=== PATIENT | female | born 1970 | race Caucasian/White ===

== ENCOUNTER → 2017-07-07 | Outpatient (CLI) | payer BC ==
--- NOTE | 2017-07-08 09:38 | MM ---
Reason for exam: screening (asymptomatic). Last mammogram was performed 1 year and 2 months ago. History: Patient had first child at age 34. Family history of breast cancer in paternal aunt. Took hormonal contraceptives beginning at age 44. Taking progesterone for 1 month beginning at age 42. Taking tamoxifen for 1 month. Physical Findings: Nurse did not find any significant physical abnormalities on exam. MG 3D Screening Mammo W/Cad Bilateral CC and MLO view(s) were taken. Prior study comparison: April 22, 2016, bilateral MG 3d diag mammo w/cad PAULINE. March 27, 2015, bilateral MG diagnostic mammo w CAD PAULINE. The breast tissue is heterogeneously dense. This may lower the sensitivity of mammography. Finding: There is a 22 mm circumscribed oval mass in the lower inner quadrant, middle position of the right breast. 41mm circumscribed mass in the left breast upper outer quadrant. New finding and increase in size since April 22, 2016. ASSESSMENT: Incomplete: need additional imaging evaluation, BI-RAD 0 RECOMMENDATION: Ultrasound of both breasts. [facility] will attempt to contact patient to return for ultrasound.
== END | disposition home or self-care (01) ==
LOC: RADMAMWWP 11:20
PROVIDERS: ATTEND Nurse Practitioner
DX: Z12.31 Encounter for screening mammogram for malignant neoplasm of breast (principal)
CPT/HCPCS: 77063; G0202

== ENCOUNTER → 2017-07-25 | Outpatient (CLI) | payer BC ==
--- NOTE | 2017-07-30 07:54 | USB ---
Reason for exam: follow-up at short interval from prior study. History: Patient had first child at age 34. Family history of breast cancer in paternal aunt. Took hormonal contraceptives beginning at age 44. Taking progesterone for 1 month beginning at age 42. Taking tamoxifen for 1 month. Physical Findings: Nurse did not find any significant physical abnormalities on exam. US Breast Workup Limited PAULINE Technologist: Loyda Mata Right breast ultrasound demonstrates a 25 x 1.0 x 2.3cm oval, cystic cluster at 3 o'clock, and a 0.7 x 0.4 x 0.7cm oval, cystic lesion at 6 o'clock. Left breast ultrasound demonstrates a 1.2 x 0.7 x 0.8cm oval, cystic lesion at 12 o'clock, a 4.0 x 2.0 x 3.0cm oval, cystic cluster at 2 o'clock, a 0.8 x 0.4 x 0.5cm oval, mixed lesion at 2 o'clock, a 1.0 x 0.8 x 0.9cm oval, mixed lesion at 3 o'clock for which a cyst aspiration is recommended. These results were verbally communicated with the patient and result sheet given to the patient on 07/25/17. ASSESSMENT: Suspicious, BI-RAD 4 RECOMMENDATION: Aspiration of the left breast. Called Anne Rendon NP with mammographic findings and has scheduled an appointment for the patient for08/12/17 at 10:[address] [place]. PRELIMINARY REPORT CALLED AND FAXED TO DR. [place] ON 07/25/17.
== END | disposition home or self-care (01) ==
LOC: RADUSWWP 16:01
PROVIDERS: ATTEND Obstetrics & Gynecology
DX: R92.8 Other abnormal and inconclusive findings on diagnostic imaging of breast (principal)

== ENCOUNTER → 2017-08-06 | Day surgery (SDC) | payer BC ==
[2017-08-06 13:29] VITALS: RESP 16; TEMP 97.9; BMI 25.0
--- NOTE | 2017-08-06 15:19 | USB ---
EXAMINATION TYPE: US breast aspiration single LT DATE OF EXAM: 08/06/2017 COMPARISON: NONE CLINICAL HISTORY: R92.8 Prev Abnormal, Left Breast. TECHNIQUE: Informed consent was obtained. A preprocedural timeout was performed. Maximal barrier technique was utilized. The skin overlying a suitable path to the patient's mass was localized with ultrasound and the overlying skin prepped and draped. Ultrasound was utilized with sterile technique. 8 cc of lidocaine was used for local anesthesia at the skin and leading up to the complicated cyst at the 3:00 position measuring approximately 0.9 x 0.8 x 0.9 cm. An 18-gauge needle was advanced under direct ultrasound guidance and aspiration was performed of approximately 1 cc of brownish thick gelatinous fluid. Specimen submitted in formalin to Pathology. Following the procedure, hemostasis achieved and the patient is discharged in stable condition without complication. IMPRESSION: STATUS POST ULTRASOUND GUIDED CYST ASPIRATION OF A COMPLICATED LEFT BREAST CYST AT THE 3:00 POSITION, PATHOLOGY IS PENDING. Pathology Results: Benign BREAST, LEFT, CYST ASPIRATE: BLOOD, MACROPHAGES AND APOCRINE CELLS CONSISTENT WITH APOCRINE CYST. Recommendation Follow up ultrasound of the left breast in 6 months. AMY
[2017-08-06 15:20] VITALS: BP 117/79; PULSE 76
== END ==
LOC: RADUSWWP 12:58
PROVIDERS: ATTEND Surgery
DX: N60.02 Solitary cyst of left breast (principal)
CPT/HCPCS: 88108; 88305; 76942; 19000; J2001

== ENCOUNTER → 2018-03-03 | Outpatient (CLI) | payer BC ==
--- NOTE | 2018-03-03 09:56 | USB ---
Reason for exam: follow-up at short interval from prior study. History: Patient had first child at age 34. Family history of breast cancer in paternal aunt. Benign US breast aspiration single LT of the left breast, August 06, 2017. Took hormonal contraceptives beginning at age 44. Taking progesterone for 1 month beginning at age 42. Taking tamoxifen for 1 month. Physical Findings: Nurse Summary: Patient complains of bilateral breast pain x 5 days, 1cm palpable left breast 3-4 o'clock (nurse lorraine). US Breast LT Technologist: Lian Aden RT (R)(M) Left complete breast ultrasound includes all four quadrants, the retroareolar region and axilla. Finding demonstrates a 14mm oval, cystic lesion at 12 o'clock, a 42mm oval, septated cyst at 3 o'clock, a 10 mm oval, cystic lesion at 3 o'clock, a 11 mm oval, cystic lesion at 5 o'clock, a 8 x 5 x 7mm oval, cystic lesion with debris at 7 o'clock and a 11 mm oval, cystic lesion at 9 o'clock. Multicystic breast. Overall fibrocystic change. These results were verbally communicated with the patient and result sheet given to the patient on 03/03/18. ASSESSMENT: Probably benign, BI-RAD 3 RECOMMENDATION: Follow-up diagnostic mammogram of both breasts in 5 months.
== END | disposition home or self-care (01) ==
LOC: RADUSWWP 09:05
PROVIDERS: ATTEND Family Medicine
DX: R92.8 Other abnormal and inconclusive findings on diagnostic imaging of breast (principal)

== ENCOUNTER → 2018-08-14 | Outpatient (CLI) | payer BC ==
[2018-08-14 09:46] VITALS: BP 108/72; PULSE 79; RESP 18; TEMP 98.7; BMI 25.0
--- NOTE | 2018-08-14 10:31 | P.GSHP ---
History of Present Illness H&P Date: 08/14/18 Chief Complaint: abnormal radiographs of hte breast The patient is a 48-year-old white female who in June 2017 had a bilateral screening mammogram performed, this was felt to be incomplete and bilateral breast ultrasounds are recommended. Bilateral breast ultrasounds were done and it was recommended to the cystic lesion in the left breast be aspirated. This was the lesion at 3:00. Pathology revealed findings consistent with apocrine cyst and repeat ultrasound of the left breast was done in February 2018. This was felt to be probably benign and the patient is now due for bilateral breast mammograms. The patient states she has dense breast, but has not felt any thing new in her breast. The patient has no nipple discharge or skin changes. The patient has not been at this time which is specifically concerned about in her breasts. Family History: 1. father: prostate and skin cancer 2. great aunts paternal: breast cancer Multiple history Menarche: 16 Pregnancies: 2, 2 children first at 34, breast fed: yes menopause: hysterectomy at 45, for adenomyosis and fibroids, no cancer, left both ovaries BCP: 10 years hormones: used estrogen about 1 year, and progesterone ( 2-3 years) have been off for about 8 months Past surgical history 1. myosure for fibroids 2. cervical freezing 3. hysterectomy Past Medical History: 1. placental abruption 2. anxiety social History: smoke: none alcohol: none drugs: none caffiene: coffee 2 cups in the am - Constitutional Comment: hot flashes Constitutional: Reports sweats - EENT Comment: migraine headaches Eyes: denies blurred vision, denies pain Ears: bilateral: tinnitus, deny: decreased hearing Ears, nose, mouth and throat: Reports headache, Denies sore throat - Breasts Breasts: bilateral: as per HPI - Cardiovascular Cardiovascular: Denies chest pain, Denies shortness of breath - Respiratory Respiratory: Denies cough, Denies 7 - Gastrointestinal Comment: ? IBS Gastrointestinal: Denies abdominal pain, Denies diarrhea, Denies nausea, Denies vomiting - Genitourinary (Female) Genitourinary: Denies dysuria, Denies hematuria - Musculoskeletal Musculoskeletal: Denies myalgias - Integumentary Integumentary: Denies pruritus, Denies rash - Neurological Neurological: Denies numbness, Denies weakness - Psychiatric Psychiatric: Reports anxiety - Endocrine Endocrine: Denies fatigue, Denies weight change - Hematologic/Lymphatic Comment: fish oil - Allergic/Immunologic Comment: possiible IGG deficiency Allergic/Immunologic: Reports seasonal allergies Past Medical History Past Medical History: No Reported History Additional Past Medical History / Comment(s): Adenomyosis History of Any Multi-Drug Resistant Organisms: None Reported Past Surgical History: Ablation, Hysterectomy Additional Past Surgical History / Comment(s): d & c with polyp removal 2014., u /s guided cyst aspiration Past Anesthesia/Blood Transfusion Reactions: No Reported Reaction Past Psychological History: Anxiety Smoking Status: Never smoker Past Drug Use History: None Reported Medications and Allergies Home Medications Medication Instructions Recorded Confirmed Type Ascorbic Acid [Vitamin C] 1,000 mg PO QAM 08/14/18 08/14/18 History Biotin 5 mg PO QAM 08/14/18 08/14/18 History Calcium Carbonate [Calcium] 600 mg PO QAM 08/14/18 08/14/18 History Cholecalciferol [Vitamin D3] 1,000 unit PO QAM 08/14/18 08/14/18 History Escitalopram [Lexapro] 10 mg PO HS 08/14/18 08/14/18 History Glucosam/Brown-Msm1/C/Rolf/Bosw 1 each PO QAM 08/14/18 08/14/18 History [Glucosamine-Chondroitin Tablet] Magnesium 200 mg PO QAM 08/14/18 08/14/18 History Multivitamins, Thera [Multivitamin 1 tab PO QAM 08/14/18 08/14/18 History (formulary)] [place]-3 Fatty Acids/Fish Oil [Fish 1 each PO QAM 08/14/18 08/14/18 History Oil 1,000 mg Softgel] Allergies Allergy/AdvReac Type Severity Reaction Status Date / Time No Known Allergies Allergy Verified 08/06/17 13:18 Surgical - Exam Vital Signs Temp Pulse Resp BP Pulse Ox 98.7 F 79 18 108/72 97 08/14/18 09:41 08/14/18 09:41 08/14/18 09:41 08/14/18 09:41 08/14/18 09:41 BMI 25.1 - General well developed, well nourished, no distress - Eyes normal ocular movement, no icteric - ENT no hearing loss, no congestion - Neck no masses, trachea midline - Respiratory normal respiratory effort, clear to auscultation - Cardiovascular Rhythm: regular Heart Sounds: normal: S1, S2 - Abdomen Abdomen: soft, non tender, no guarding, no rigid, no rebound - Integumentary normal turger - Neurologic no disoriented, no combative - Musculoskeletal normal gait, normal posture - Psychiatric oriented to time, oriented to person, oriented to place, speech is normal, memory intact Breast examination: Right breast: Very dense breast on multiple positional exam no dominant masses or nodules of concern Right axilla: No adenopathy of concern Left breast: Very dense breast and multi positional exam no dominant masses or nodules of concern bilateral fibrocystic changes Left axilla: No adenopathy of concern Results Mammogram and ultrasound reports review of Assessment and Plan Assessment: Impression: 1. Bilateral fibrocystic dense breast 2. Status post left breast cyst aspiration which was benign approximately 6 months ago 3. Patient due for bilateral mammogram today possible ultrasounds based on mammograms Plan: 1. Bilateral mammogram further recommendation to follow these 2. Patient to do monthly self breast exams 3. Close surveillance 4. The denseness of the breast may decrease if she is able to decrease her caffeine intake discussed with the patient The patient drinks at least 2 cups of coffee per day. She does not smoke and is not exposed to secondhand smoke. She does not eat much chocolate. She does not drink much pop. She understands that decreasing the caffeine intake may decrease the density of the breasts. CC: Moni Luis
== END ==
LOC: WWCWWP 09:11
PROVIDERS: ATTEND Surgery
DX: Z53.9 Procedure and treatment not carried out, unspecified reason (principal)

== ENCOUNTER → 2018-08-14 | Outpatient (CLI) | payer BC ==
--- NOTE | 2018-08-14 11:54 | MM ---
Reason for exam: additional evaluation requested from prior study. Last mammogram was performed 1 year and 1 month ago. History: Patient had first child at age 34. Family history of breast cancer in paternal aunt. Benign US breast aspiration single LT of the left breast, August 06, 2017. Took hormonal contraceptives beginning at age 44. Taking progesterone for 1 month beginning at age 42. Taking tamoxifen for 1 month. Physical Findings: Breast exam performed by Dr. Da Silva. MG 3D Diag Mammo W/Cad PAULINE Bilateral CC, MLO, and XCCL view(s) were taken. Prior study comparison: July 07, 2017, bilateral MG 3d screening mammo w/cad. April 22, 2016, bilateral MG 3d diag mammo w/cad PAULINE. The breast tissue is heterogeneously dense. This may lower the sensitivity of mammography. No suspicious calcifications are seen. Waxing and waning cysts bilaterally. No significant new findings when compared with previous films. These results were verbally communicated with the patient and result sheet given to the patient on 08/14/18. ASSESSMENT: Benign, BI-RAD 2 RECOMMENDATION: Routine screening mammogram of both breasts in 1 year. Manage patient on a clinical basis.
== END | disposition home or self-care (01) ==
LOC: RADMAMWWP 09:14
PROVIDERS: ATTEND Surgery
DX: N60.01 Solitary cyst of right breast (principal); N60.02 Solitary cyst of left breast; R92.8 Other abnormal and inconclusive findings on diagnostic imaging of breast
CPT/HCPCS: 77062; 77066

== ENCOUNTER → 2019-02-18 | Outpatient (CLI) | payer BC ==
[2019-02-18 15:56] VITALS: BP 120/77; PULSE 99; RESP 18; TEMP 98.3; BMI 25.0
--- NOTE | 2019-02-18 16:10 | P.PN ---
Subjective Progress Note Date: 02/18/19 Principal diagnosis: lump in her right breast Ilene is a 48-year-old white female with a history of fibrocystic breast changes. In July 2018 she underwent a bilateral mammogram which was felt to be benign BIRADS 2. She has had ultrasound-guided aspiration of cysts in the breast in the past. The patient states most recently approximately 2 weeks ago she noted in the area of increased nodularity in her right breast at the 12 o'clock position. This was painful for her and she states that the area has persisted and is uncomfortable. The patient has had a hysterectomy and has no idea where she would be in relationship to her menstrual periods. They did not remove her ovaries. The lesion seems to be smaller as per the patient. The patient used to take hormone replacement therapy but she does not at this time. The patient still drinks approximately 2 large cups of coffee in the morning. She does not drink other caffeinated beverages. She does not smoke, she is not exposed to secondhand smoke. She states chocolate occasionally. Family history: 1. Father: Prostate and skin cancer 2. Gradients paternal: Breast cancer Hormonal history Menarche: 16 , first child at 34, breast-fed: Yes Menopause: Hysterectomy of 45 for adenomyosis and fibroids, no cancer, ovaries were not removed Patient control pills: 10 years Hormones: Use estrogen about 1 year and progesterone 2-3 years has been off it now for approximately 8 months Past surgical history: 1. Mild assure for fibroids 2. Cervical freezing 3. Hysterectomy Past medical history: 1. Placental abruption 2. Anxiety 3. Fibrocystic breast changes Social history: Smoke: Negative Alcohol: Negative Drugs: Negative Caffeine: Coffee 2 cups in the morning Review of systems: HEENT: Tinnitus Lungs: Negative Heart: Negative GI: Negative : Status post hysterectomy Musculoskeletal: Negative Skin: Negative Psychiatric: anxiety Objective - Vital Signs Vital signs: Vital Signs Temp 98.3 F 02/18/19 15:52 Pulse 99 02/18/19 15:52 Resp 18 02/18/19 15:52 BP 120/77 02/18/19 15:52 Pulse Ox 99 02/18/19 15:52 - Constitutional General appearance: Present: average body habitus - EENT Eyes: Present: EOMI ENT: Present: hearing grossly normal - Neck Neck: Present: normal ROM - Respiratory Respiratory: bilateral: CTA - Cardiovascular Rhythm: regular Heart sounds: normal: S1, S2 - Gastrointestinal General gastrointestinal: Present: soft - Integumentary Integumentary: Present: normal turgor - Musculoskeletal Musculoskeletal: Present: gait normal - Psychiatric Psychiatric: Present: A&O x's 3, appropriate affect, intact judgment & insight - Additional findings Additional findings: Breast exam: right breast: fibrocystic breast changes, multiple positional exam increased density in the upper outer quadrant area especially at the 10 o'clock position, some increased nodularity at the 12 o'clock position suspect this may represent cyst and dense breast tissue Right axilla: No adenopathy of concern Left breast: Fibrocystic breast changes Left axilla: No adenopathy of concern Bra 36B Assessment and Plan Assessment: Impression: 1. Breast pain 2. Fibrocystic breast changes 2. Nodularity greatest right breast 4. Family history of cancer in Plan: 1. Right breast ultrasound with possible aspiration of breast cysts 2. We discussed causes of breast pain and fibrocystic disease 3. Follow-up after breast ultrasound CC: Dr. Moni Luis
== END ==
LOC: WWCWWP 15:45
PROVIDERS: ATTEND Surgery
DX: Z53.9 Procedure and treatment not carried out, unspecified reason (principal)

== ENCOUNTER → 2019-10-22 | Outpatient (CLI) | payer OTHER ==
--- NOTE | 2019-10-22 15:36 | MM ---
Reason for exam: additional evaluation requested from prior study. Last mammogram was performed 1 year and 2 months ago. History: Patient had first child at age 34. Family history of breast cancer in paternal aunt. Benign US breast aspiration single LT of the left breast, August 06, 2017. Took hormonal contraceptives beginning at age 44. Taking estrogen beginning at age 42. Taking progesterone beginning at age 42. Physical Findings: Nurse Summary: 1.5cm nodule in the left breast at 3 o'clock (nurse ruslan). MG 3D Diag Mammo W/Cad PAULINE Bilateral CC and MLO view(s) were taken. Prior study comparison: August 14, 2018, bilateral MG 3d diag mammo w/cad PAULINE. July 07, 2017, bilateral MG 3d screening mammo w/cad. The breast tissue is extremely dense which could obscure a lesion on mammography. Finding: There is a 45 mm high density, obscured round mass in the left breast. New finding since August 14, 2018 and July 07, 2017. These results were verbally communicated with the patient and result sheet given to the patient on 10/22/19. ASSESSMENT: Incomplete: need additional imaging evaluation, BI-RAD 0 RECOMMENDATION: Ultrasound of both breasts.
--- NOTE | 2019-10-22 15:39 | USB ---
Reason for exam: additional evaluation requested from abnormal screening. History: Patient had first child at age 34. Family history of breast cancer in paternal aunt. Benign US breast aspiration single LT of the left breast, August 06, 2017. Took hormonal contraceptives beginning at age 44. Taking estrogen beginning at age 42. Taking progesterone beginning at age 42. US Breast Limited BILAT Right limited breast ultrasound including focal area of concern, retroareolar and axilla demonstrates a 1.1 x 0.6 x 0.4cm cystic lesion at 7 o'clock, a 0.6 x 0.6 x 0.4cm mixed lesion at 8 o'clock and a 0.2 x 0.2 x 0.2cm cystic lesion at 8 o'clock. Left limited breast ultrasound including focal area of concern, retroareolar and axilla demonstrates a 5.1 x 4.7 x 2.4cm cystic lesion at 1 o'clock and multiple cysts at 1 o'clock. These results were verbally communicated with the patient and result sheet given to the patient on 10/22/19. ASSESSMENT: Probably benign, BI-RAD 3 RECOMMENDATION: Ultrasound of the right breast in 6 months. (8 o'clock) Manage on a clinical basis with regard to left breast cyst.
== END | disposition home or self-care (01) ==
LOC: RADMAMWWP 13:37
PROVIDERS: ATTEND Family Medicine
DX: Z09 Encounter for follow-up examination after completed treatment for conditions other than malignant neoplasm (principal); Z86.000 Personal history of in-situ neoplasm of breast
CPT/HCPCS: 77062; 77066

== ENCOUNTER → 2020-05-02 | Outpatient (CLI) | payer OTHER ==
--- NOTE | 2020-05-02 12:08 | USB ---
Reason for exam: follow-up at short interval from prior study. History: Patient had first child at age 34. Family history of breast cancer in 2 paternal aunts. Benign US breast aspiration single LT of the left breast, August 06, 2017. Took hormonal contraceptives beginning at age 44. Took estrogen for 2 years beginning at age 42. Took progesterone for 2 years beginning at age 42. Physical Findings: Nurse Summary: 2cm movable cystic lumps right breast 12 o'clock, left breast 3 o'clock, 3cm lump left breast 1-2 o'clock, bilateral fibrocystic lumps (nurse mj). US Breast Limited BILAT Technologist: Amanda Chun Right limited breast ultrasound including focal area of concern, retroareolar and axilla demonstrates a 1.1 x 0.9 x 0.5cm cystic lesion at 8 o'clock, a 0.6 x 0.6 x 0.5cm round, lobular, cystic lesion at 8 o'clock with internal echoes, suspect debris filled cyst not clearly seen prior, a 1.3 x 1.2 x 0.3cm oval, cystic lesion at 10 o'clock, a 0.5 x 1.0 x 0.4cm cystic lesion at 10 o'clock and a 1.9 x 1.2 x 0.5cm cystic cluster at 12 o'clock. Left limited breast ultrasound including focal area of concern, retroareolar and axilla demonstrates a 5.2 x 4.6 x 2.6cm oval, cystic lesion at 1 o'clock, a 3.4 x 3.0 x 1.2cm oval, cystic lesion at 2 o'clock, a 4.4 x 2.5 x 1.6cm oval, cystic lesion at 3 o'clock, elongated cyst and a 1.0 x 1.2 x 1.0cm cystic cluster of adjacent cysts or cystic septation at the nipple. These results were verbally communicated with the patient and result sheet given to the patient on 05/02/20. ASSESSMENT: Probably benign, BI-RAD 3 RECOMMENDATION: Follow-up diagnostic mammogram and ultrasound of both breasts in 6 months.
== END | disposition home or self-care (01) ==
LOC: RADUSWWP 10:15
PROVIDERS: ATTEND Family Medicine
DX: R92.8 Other abnormal and inconclusive findings on diagnostic imaging of breast (principal)

== ENCOUNTER → 2020-07-20 | Outpatient (CLI) | payer OTHER ==
--- NOTE | 2020-07-20 09:45 | P.PN ---
Subjective Progress Note Date: 07/20/20 Principal diagnosis: breast lumps, greatest in the left breast Ilene is a 50-year-old white female with a history of fibrocystic breast changes. In July 2018 she underwent a bilateral mammogram which was felt to be benign BIRADS 2. She has had ultrasound-guided aspiration of cysts in the breast in the past. Her bilateral mammogram performed in October 2019 after which ultrasound of both breasts were recommended. The ultrasound was performed in April 2020. The ultrasound revealed multiple cystic lesions bilaterally. The largest of the right breast was 0.3 x 1.2 cm at 10:00. In the left breast a 5.2 x 2.6 cm oval cystic lesion was noted at 1:00. These were all felt to be benign BIRADS 3 and follow-up by diagnostic mammogram and ultrasound in 6 months of the breast was recommended. Patient states that she does feel system both breast. The left breast upper outer quadrant area is the one that is tender and she is most concerned about. She is not complaining of any other lumps masses or nodules in her breast. She had hormone testing done and was told that her estrogen levels were very low. She has recently started hormone replacement therapy changes using estrogen cream which is topical , states that her breasts are less teder after she is t aking the cream. She has never had any surgery on her breast. She had a hysterectomy approximately 5 years ago for adenomyosis, they did not take her ovaries. Caffeine: 3-4 cups/day Imaging: Negative Theophylline: Occasional Hormones: As noted above Family history: 1. Father: Prostate and skin cancer 2. Great aunt paternal: Breast cancer 3. paternal aunt: breast cancer Hormonal history Menarche: 16 , first child at 34, breast-fed: Yes Menopause: Hysterectomy of 45 for adenomyosis and fibroids, no cancer, ovaries were not removed Patient control pills: 10 years Hormones: Use estrogen about 1 year and progesterone 2-3 years has been off it now for approximately 8 months Past surgical history: 1. myometrial excision fibroids 2. Cervical freezing 3. Hysterectomy Past medical history: 1. Placental abruption 2. Anxiety 3. Fibrocystic breast changes 4. hot flashes Social history: Smoke: Negative Alcohol: Negative Drugs: Negative Caffeine: Coffee 2 cups in the morning Review of systems: HEENT: Tinnitus Lungs: Negative Heart: Negative GI: Negative : Status post hysterectomy/ perimenopausal at this time recently started on estrogen Musculoskeletal: Negative, planter fasciitis Skin: Negative Psychiatric: anxiety Objective - Vital Signs Vital signs: Vital Signs Temp 98.3 F 07/20/20 09:15 Pulse 71 07/20/20 09:15 Resp 18 07/20/20 09:15 BP 120/69 07/20/20 09:15 Pulse Ox 99 07/20/20 09:15 Intake & Output 07/19/20 07/20/20 07/20/20 18:59 06:59 18:59 Weight 81.193 kg - Exam BMI 26.8 - Constitutional General appearance: Present: average body habitus - EENT Eyes: Present: EOMI ENT: Present: hearing grossly normal - Neck Neck: Present: normal ROM - Respiratory Respiratory: bilateral: CTA - Cardiovascular Rhythm: regular Heart sounds: normal: S1, S2 - Gastrointestinal General gastrointestinal: Present: normal bowel sounds, soft - Integumentary Integumentary: Present: normal turgor - Musculoskeletal Musculoskeletal: Present: gait normal - Psychiatric Psychiatric: Present: A&O x's 3, appropriate affect - Additional findings Additional findings: breast exam: BRA 36B inspection: ptosis grade 2 bilateral Palpation: right breasts: Fibroglandular tissue, no dominant discrete masses Axilla: No adenopathy of concern Left breast: Fibroglandular tissue, two discrete masses at 12:00 and at 1:00 Left axilla: No adenopathy of concern Assessment and Plan Assessment: Impression: 1. Fibrocystic breast changes 2. Patient recently started on hormone replacement therapy 3. Palpable lumps in the left breast 2 Plan: 1. Aspiration cystic lesion left breast 2 2. We have discussed decreasing caffeine intake secondary to its association with fibrocystic breast changes 3. Patient hormone replacement therapy may be affecting for breast pain/cyst 4. Patient will follow up in 3 weeks after aspiration of breast cysts left breast CC: DR. Moni Luis encounter 15 minutes, > 50% of time in planning and counselling
--- NOTE | 2020-07-20 09:48 | P.PCN ---
Date of Procedure: 07/20/20 Preoperative Diagnosis: Cystic lesions left breast 1:00 and 12:00 Postoperative Diagnosis: same Surgeon: Margaret Da Silva Pathology: other Disposition: same day Indications for Procedure: Symptomatic cystic changes left breast Operative Findings: Lesion 12:00 16 mL of fluid slightly yellow turbid in nature. Lesion 1:00 5 mL of fluid green in nature Description of Procedure: The patient underwent breast examination. 2 lesions were noted in the left breast for aspiration. The first was at 12:00 the breast was prepped using alcohol a 12 mL syringe with a 22-gauge needle was inserted into the lesion and 12 mL of fluid was removed. The syringe was replaced and an additional 4 mL of fluid was removed with replacement of the syringe. The second lesion at 1:00 was prepped using alcohol 22-gauge needle on a 10 mL syringe was inserted and 5 mL of fluid Complete resolution of both lesions occurred. The specimens were sent to pathology and the patient will follow-up in one in 3 weeks.
[2020-07-20 10:05] VITALS: BP 120/69; PULSE 71; RESP 18; TEMP 98.3
== END | disposition home or self-care (01) ==
LOC: WWCWWP 09:05
PROVIDERS: ATTEND Surgery
DX: N60.02 Solitary cyst of left breast (principal)
CPT/HCPCS: 88108; 88305

== ENCOUNTER → 2020-08-18 | Outpatient (CLI) | payer OTHER ==
[2020-08-18 12:58] VITALS: BP 115/78; PULSE 61; RESP 16; TEMP 98.1
--- NOTE | 2020-08-18 13:26 | P.PN ---
Subjective Progress Note Date: 08/18/20 Principal diagnosis: left breast cyst Ilene is a 50[place] [id number] [place] aspirated in her left breast. She reports today to determine if the cysts have recurred. The patient underwent breast examination. 2 lesions were noted in the left breast for aspiration. The first was at 12:00 the breast was prepped using alcohol a 12 mL syringe with a 22-gauge needle was inserted into the lesion and 12 mL of fluid was removed. The syringe was replaced and an additional 4 mL of fluid was removed with replacement of the syringe. The second lesion at 1:00 was prepped using alcohol 22-gauge needle on a 10 mL syringe was inserted and 5 mL of fluid She does not believe that this cyst have recurred. She is here for evaluation with respect to this. Caffeine: 3-4 cups of coffee per day Nicotine: Negative Theophylline: Occasional Hormones: Recently started hormone replacement therapy using estrogen cream which is topical Family history: Father: Prostate skin cancer Grade paternal aunt: Breast cancer Paternal aunt: Breast cancer Surgical history: Myometrial excision of fibroids Cervical freezing Hysterectomy Medical history: Anxiety Fibrocystic breast changes Hot flashes Social history: Smoke: Negative Alcohol: Negative Drugs: Negative Review of systems: HEENT: Tinnitus Lungs: Negative Heart: Negative GI: Negative : Status post hysterectomy. Menopausal on estrogen Musculoskeletal: Plantar fasciitis Skin: Negative Psychiatric: Negative Objective - Vital Signs Vital signs: Vital Signs Temp 98.1 F 08/18/20 12:55 Pulse 61 08/18/20 12:55 Resp 16 08/18/20 12:55 BP 115/78 08/18/20 12:55 Pulse Ox 99 08/18/20 12:55 Intake & Output 08/17/20 08/18/20 08/18/20 18:59 06:59 18:59 Weight 79.379 kg - Exam BMI 27.4 - Constitutional General appearance: Present: average body habitus - EENT Eyes: Present: EOMI ENT: Present: hearing grossly normal - Neck Neck: Present: normal ROM - Respiratory Respiratory: bilateral: CTA - Cardiovascular Rhythm: regular Heart sounds: normal: S1, S2 - Gastrointestinal General gastrointestinal: Present: soft - Integumentary Integumentary: Present: normal turgor - Musculoskeletal Musculoskeletal: Present: gait normal - Psychiatric Psychiatric: Present: A&O x's 3, appropriate affect - Additional findings Additional findings: breast exam: left breast: nodularity lefteral aspect of left breast at 3 o clock, 1 cm in size no specific evidence of recurrence of the cyst which was aspirated in the past at 12:00 and at 1:00 No axillary adenopathy of concern Right breast: No specific masses or nodules of concern Right axilla: No adenopathy of concern Assessment and Plan Assessment: Impression: 1. Perimenopausal 2. Fibrocystic breast changes 3. Palpable nodule left breast at 3:00 most likely cystic in nature Plan: 1. Close surveillance of breast 2. Aspiration of 3:00 lesion left breast 4. If this is negative for cystoscopy consider repeating an ultrasound CC: Dr. Luis encounter 15 minutes, > 50% of time in planning and counselling
--- NOTE | 2020-08-18 13:30 | P.PCN ---
Date of Procedure: 08/18/20 Preoperative Diagnosis: Mass left breast at 3:00 Postoperative Diagnosis: Same Procedure(s) Performed: Aspiration mass left breast rule out cyst Surgeon: Margaret Da Silva Pathology: none sent Condition: stable Disposition: same day Indications for Procedure: Palpable mass left breast at 3:00 approximately 1 cm in size Operative Findings: dark Brown fluid Description of Procedure: The area of the left breast was prepped using alcohol. A 22-gauge needle on a 10 mL syringe was inserted into the area of concern. Approximately 1 mL of dark brown fluid was removed with complete resolution of the lesion. Patient tolerated this in stable condition. While in approximately 1 month for reevaluation of the breast. At this time there was not evidence of recurrence of the 12:00 and 1:00 cystic lesion however Lesion was noted at 3:00 which was aspirated and found to be consistent with a cyst as well. Patient will follow-up in approximately one month for repeat evaluation
== END | disposition home or self-care (01) ==
LOC: WWCWWP 12:46
PROVIDERS: ATTEND Surgery
DX: Z53.9 Procedure and treatment not carried out, unspecified reason (principal)

== ENCOUNTER → 2020-09-29 | Outpatient (CLI) | payer OTHER ==
[2020-09-29 13:18] VITALS: BP 120/80; PULSE 81; RESP 18; TEMP 98.2
--- NOTE | 2020-09-29 14:11 | P.PN ---
Progress Note - Text left breast cyst Ilene is a 50-year-old white female who on cyst aspirated in her left breast. She reports today to determine if the cysts have recurred. The patient underwent breast examination. 2 lesions were noted in the left breast for aspiration. The first was at 12:00 the breast was prepped using alcohol a 12 mL syringe with a 22-gauge needle was inserted into the lesion and 12 mL of fluid was removed. The syringe was replaced and an additional 4 mL of fluid was removed with replacement of the syringe. The second lesion at 1:00 was prepped using alcohol 22-gauge needle on a 10 mL syringe was inserted and 5 mL of fluid was aspirated. She was seen again on 08-18-20 and a cyst was aspirated at the 3 o clock position of the left breast. She said today to determine if this cyst have recurred. She does not think that they have. Physical Exam: lungs: Clear Heart: Regular rate and rhythm Breast examination: Multiple positional exam of the right breast reveals fibrocystic changes no dominant masses or nodules of concern nothing to warrant cyst aspiration or biopsy Left breast: Multiple positional exam no dominant masses or nodules of concern, nothing to warrant interventional biopsy or aspiration Plan: Close surveillance Repeat bilateral mammogram October and ultrasound and follow up at that time CC: Lainey Luis encounter 10 minutes > 50% of time in planning and counselling
== END | disposition home or self-care (01) ==
LOC: WWCWWP 12:59
PROVIDERS: ATTEND Surgery
DX: Z53.9 Procedure and treatment not carried out, unspecified reason (principal)

== ENCOUNTER → 2020-12-01 | Outpatient (CLI) | payer OTHER ==
--- NOTE | 2020-12-04 14:50 | MM ---
Reason for exam: additional evaluation requested from prior study. Last mammogram was performed 1 year and 1 month ago. History: Patient had first child at age 34. Family history of breast cancer in 2 paternal aunts. Benign US breast aspiration single LT of the left breast, August 06, 2017. Took hormonal contraceptives beginning at age 44. Taking estrogen beginning at age 50. Taking progesterone for 2 years beginning at age 50. Taking other hormone beginning at age 50. Physical Findings: Nurse did not find any significant physical abnormalities on exam. MG 3D Diag Mammo W/Cad PAULINE Bilateral CC and MLO view(s) were taken. Prior study comparison: October 22, 2019, bilateral MG 3d diag mammo w/cad PAULINE. August 14, 2018, bilateral MG 3d diag mammo w/cad PAULINE. The breast tissue is heterogeneously dense. This may lower the sensitivity of mammography. There is no discrete abnormality. These results were verbally communicated with the patient and result sheet given to the patient on 12/01/20. ASSESSMENT: Negative, BI-RAD 1 RECOMMENDATION: Routine screening mammogram of both breasts in 1 year.
--- NOTE | 2020-12-04 14:52 | USB ---
Reason for exam: additional evaluation requested from abnormal screening. History: Patient had first child at age 34. Family history of breast cancer in 2 paternal aunts. Benign US breast aspiration single LT of the left breast, August 06, 2017. Took hormonal contraceptives beginning at age 44. Taking estrogen beginning at age 50. Taking progesterone for 2 years beginning at age 50. Taking other hormone beginning at age 50. US Breast BILAT Right complete breast ultrasound includes all four quadrants, the retroareolar region and axilla. Finding demonstrates a 1.2 x 1.2cm oval, cystic lesion at 2 o'clock, a 0.7 x 0.7cm oval, cystic lesion at 3 o'clock and a 1.2 x 0.7 x 1.0cm oval, cystic lesion at 8 o'clock. Left complete breast ultrasound includes all four quadrants, the retroareolar region and axilla. Finding demonstrates a 0.7 x 0.7 x 0.6cm oval, mixed lesion at 12 o'clock, a 1.8 x 0.8 x 1.6cm oval, cystic lesion at 2 o'clock and a 1.8 x 1.2 x 1.5cm oval, cystic cluster at 10 o'clock. Fibrocystic changes. These results were verbally communicated with the patient and result sheet given to the patient on 12/01/20. ASSESSMENT: Benign, BI-RAD 2 RECOMMENDATION: Routine screening mammogram of both breasts in 1 year.
== END | disposition home or self-care (01) ==
LOC: RADMAMWWP 14:02
PROVIDERS: ATTEND Surgery
DX: N60.01 Solitary cyst of right breast (principal); N60.02 Solitary cyst of left breast; R92.2 Inconclusive mammogram; Z80.3 Family history of malignant neoplasm of breast
CPT/HCPCS: 77062; 77066

== ENCOUNTER → 2020-12-08 | Outpatient (CLI) | payer OTHER ==
[2020-12-08 16:20] VITALS: BP 105/58; PULSE 70; RESP 16; TEMP 98.1
--- NOTE | 2020-12-08 16:31 | P.PN ---
Subjective Progress Note Date: 12/08/20 Principal diagnosis: fibrocystic breast changes lump in her right breast Ilene is a 50-year-old white female with a history of fibrocystic breast changes. In July 2018 she underwent a bilateral mammogram which was felt to be benign BIRADS 2. She has had ultrasound-guided aspiration of cysts in the breast in the past. The patient has had a hysterectomy and has no idea where she would be in relationship to her menstrual periods. They did not remove her ovaries. The patient has had multiple cyst aspirations in the past. She underwent [place] mammogram [place] [id number] which was benign BIRADS 1. She also underwent a bilateral breast ultrasound which showed multiple cystic lesions in both sides felt to be benign BIRADS 2. Repeat screening of both breasts in 1 year was recommended. Patient does not note any new lumps masses or nodules in either breast. She is not complaining any nipple discharge or skin changes. She is not complaining of any pain in her breast at this time. Caffeine: 4 cups/am nicotine: none ruben-bromine: occasional hormones: estrogen/testosterone cream; progesterone oral pill has been on this for 6 months Family history: 1. Father: Prostate and skin cancer 2. Great aunt paternal: Breast cancer 3. paternal aunt: breast cancer Hormonal history Menarche: 16 , first child at 34, breast-fed: Yes Menopause: Hysterectomy of 45 for adenomyosis and fibroids, no cancer, ovaries were not removed Patient control pills: 10 years Hormones: Use estrogen about 1 year and progesterone 2-3 years has been off it now for approximately 8 months Past surgical history: 1. Mild assure for fibroids 2. Cervical freezing 3. Hysterectomy Past medical history: 1. Placental abruption 2. Anxiety 3. Fibrocystic breast changes Social history: Smoke: Negative Alcohol: Negative Drugs: Negative Caffeine: Coffee in the morning Review of systems: HEENT: Tinnitus Lungs: Negative Heart: Negative GI: Negative : Status post hysterectomy Musculoskeletal: Negative Skin: Negative Psychiatric: anxiety Objective - Exam BMI 26.6 - Constitutional General appearance: Present: average body habitus - EENT Eyes: Present: EOMI ENT: Present: hearing grossly normal - Neck Neck: Present: normal ROM - Respiratory Respiratory: bilateral: CTA - Cardiovascular Rhythm: regular Heart sounds: normal: S1, S2 - Gastrointestinal General gastrointestinal: Present: soft - Integumentary Integumentary: Present: normal turgor - Musculoskeletal Musculoskeletal: Present: gait normal - Psychiatric Psychiatric: Present: A&O x's 3, appropriate affect, intact judgment & insight - Additional findings Additional findings: Breast exam: BRA: 36B inspection: bilateral grade 2 ptosis Palpation: Right breast: Positional exam dense fibroglandular tissue no discrete Lumps masses or nodules of concern Right axilla: No adenopathy of concern Left breast: Multi-positional exam fibrocystic changes, dense fibroglandular tissue no new discrete lumps masses or nodules of concern Left axilla: No adenopathy of concern Assessment and Plan Assessment: Impression: 1. Fibrocystic breast changes 2. Recent bilateral ultrasound and mammogram benign. Radiographic studies in 1 with repeat bilateral mammogram and bilateral ultrasound 3. Patient has no new lumps masses or nodules of concern in her breast nothing which would warrant interventional biopsy Plan: 1. We've discussed lifestyle modification and she will consider decreasing caffeine intake 2. Bilateral mammogram and ultrasound in 1 year 3. Follow-up in 1 year unless patient has any questions or concerns sooner CC: Dr. Luis, Dr. Harry encounter 20 minutes time spent in examination, reviewing records, and counselling.
== END ==
LOC: WWCWWP 16:05
PROVIDERS: ATTEND Surgery
DX: N60.12 Diffuse cystic mastopathy of left breast (principal); N64.89 Other specified disorders of breast

== ENCOUNTER → 2021-12-03 | Outpatient (CLI) | payer BC ==
--- NOTE | 2021-12-05 14:01 | MM ---
Reason for exam: additional evaluation requested from prior study. Last mammogram was performed 1 year ago. History: Patient is postmenopausal and had first child at age 34. Family history of breast cancer in 2 paternal aunts. Benign US breast aspiration single LT of the left breast, August 06, 2017. Took hormonal contraceptives beginning at age 44. Taking estrogen beginning at age 50. Taking progesterone for 2 years beginning at age 50. Taking other hormone beginning at age 50. Physical Findings: A clinical breast exam by your physician is recommended on an annual basis and results should be correlated with mammographic findings. MG 3D Diag Mammo W/Cad PAULINE Bilateral CC and MLO view(s) were taken. Prior study comparison: December 01, 2020, bilateral MG 3d diag mammo w/cad PAULINE. October 22, 2019, bilateral MG 3d diag mammo w/cad PAULINE. The breast tissue is heterogeneously dense. This may lower the sensitivity of mammography. No significant changes when compared with prior studies. ASSESSMENT: Incomplete: need additional imaging evaluation, BI-RAD 0 RECOMMENDATION: Ultrasound of both breasts. (as ordered)
--- NOTE | 2021-12-05 14:04 | USB ---
Reason for exam: additional evaluation requested from prior study. History: Patient is postmenopausal and had first child at age 34. Family history of breast cancer in 2 paternal aunts. Benign US breast aspiration single LT of the left breast, August 06, 2017. Took hormonal contraceptives beginning at age 44. Taking estrogen beginning at age 50. Taking progesterone for 2 years beginning at age 50. Taking other hormone beginning at age 50. Physical Findings: A clinical breast exam by your physician is recommended on an annual basis and results should be correlated with mammographic findings. US Breast BILAT Left complete breast ultrasound includes all four quadrants, the retroareolar region and axilla. Finding demonstrates a 1.0 x 0.4 x 0.8cm likely cyst cluster at 4 o'clock and a 0.9 x 0.7 x 0.8cm likely debris filled cyst at 11 o'clock. Right complete breast ultrasound includes all four quadrants, the retroareolar region and axilla. Finding demonstrates innumerable breast cysts. Innumerable bilateral breast cysts. Some cysts seen previously have fluctuated in size. ASSESSMENT: Benign, BI-RAD 2 RECOMMENDATION: Routine screening mammogram of both breasts in 1 year.
== END | disposition home or self-care (01) ==
LOC: RADMAMWWP 13:48
PROVIDERS: ATTEND Surgery
DX: N60.09 Solitary cyst of unspecified breast (principal); Z78.0 Asymptomatic menopausal state; Z80.3 Family history of malignant neoplasm of breast
CPT/HCPCS: 77062; 77066

== ENCOUNTER → 2021-12-07 | Outpatient (CLI) | payer BC ==
[2021-12-07 13:05] VITALS: BP 126/86; PULSE 63; RESP 17; TEMP 98.3
--- NOTE | 2021-12-07 13:27 | P.PN ---
Subjective Progress Note Date: 12/07/21 Principal diagnosis: fibrocystic breast changes Ilene is a 51-year-old white female with a history of fibrocystic breast changes. In July 2018 she underwent a bilateral mammogram which was felt to be benign BIRADS 2. She has had ultrasound-guided aspiration of cysts in the breast in the past. The patient has had a hysterectomy and has no idea where she would be in relationship to her menstrual periods. They did not remove her ovaries. The patient has had multiple cyst aspirations in the past. [place] [id number] which was benign BIRADS 1. She also underwent a bilateral breast ultrasound which showed multiple cystic lesions in both sides felt to be benign BIRADS 2. Repeat screening of both breasts in 1 year was recommended. Bilateral mammogram and ultrasound of the breast done on 12-03-21; multiple bilateral breast cysts, BIRAD 2 repeat in 1 year. Patient does not note any new lumps masses or nodules in either breast. She is not complaining any nipple discharge or skin changes. She is not complaining of any pain in her breast at this time. Caffeine: 4 cups/am nicotine: none ruben-bromine: occasional hormones: estrogen/testosterone cream; progesterone oral pill has been on this for 12 months Family history: 1. Father: Prostate and skin cancer 2. Great aunt paternal: Breast cancer 3. paternal aunt: breast cancer Hormonal history Menarche: 16 , first child at 34, breast-fed: Yes Menopause: Hysterectomy of 45 for adenomyosis and fibroids, no cancer, ovaries were not removed Patient control pills: 10 years Hormones: Use estrogen about 1 year and progesterone 2-3 years has been off it now for approximately 8 months Past surgical history: 1. fibroids 2. Cervical freezing 3. Hysterectomy Past medical history: 1. Placental abruption 2. Anxiety 3. Fibrocystic breast changes Social history: Smoke: Negative Alcohol: Negative Drugs: Negative Caffeine: Coffee in the morning Review of systems: HEENT: Tinnitus Lungs: Negative Heart: Negative GI: Negative : Status post hysterectomy Musculoskeletal: Negative Skin: Negative Psychiatric: anxiety Objective - Vital Signs Vital signs: Vital Signs Temp 98.3 F 12/07/21 13:02 Pulse 63 12/07/21 13:02 Resp 17 12/07/21 13:02 BP 126/86 12/07/21 13:02 Pulse Ox 98 12/07/21 13:02 Intake & Output 12/06/21 12/07/21 12/07/21 18:59 06:59 18:59 Weight 80.739 kg - Constitutional General appearance: Present: cooperative - EENT Eyes: Present: EOMI ENT: Present: hearing grossly normal - Neck Neck: Present: normal ROM - Respiratory Respiratory: bilateral: CTA - Cardiovascular Rhythm: regular Heart sounds: normal: S1, S2 - Integumentary Integumentary: Present: normal turgor - Musculoskeletal Musculoskeletal: Present: gait normal - Psychiatric Psychiatric: Present: A&O x's 3, appropriate affect, intact judgment & insight - Additional findings Additional findings: Breast Exam: BRA: 36B inspection: grade 2 ptosis bilateral palpation: right breast: Positional exam fibrocystic changes no dominant masses or nodules of concern Right axilla: No adenopathy of concern Left breast: Multi-positional exam fibrocystic changes no dominant masses or nodules of concern Left axilla: No adenopathy of concern Assessment and Plan Assessment: Impression: Fibrocystic breast changes Patient is presently on hormone replacement therapy He is drinking 4 cups of coffee per day Plan: Patient will consider lifestyle modification if the cyst in her breast bother her but at this time she just wishes close surveillance Follow-up examination in 6 months CC: Dr. Luis
== END ==
LOC: WWCWWP 12:36
PROVIDERS: ATTEND Surgery
DX: N60.11 Diffuse cystic mastopathy of right breast (principal); N60.12 Diffuse cystic mastopathy of left breast; F41.9 Anxiety disorder, unspecified; Z79.890 Hormone replacement therapy

== ENCOUNTER → 2022-06-07 | Outpatient (CLI) | payer BC ==
[2022-06-07 13:04] VITALS: BP 122/85; PULSE 87; RESP 12; TEMP 98.7
--- NOTE | 2022-06-07 13:28 | P.PN ---
Subjective Progress Note Date: 06/07/22 Principal diagnosis: fibrocystic breast changes fibrocystic breast changes Megha is a 52-year-old white female with a history of fibrocystic breast changes. She has had ultrasound-guided aspiration of cysts in both breasts in the past. These always been benign. She has had a hysterectomy and has no idea where she is in relationship to her menstrual cycles. They did not remove her ovaries. Bilateral mammogram and ultrasound of the breast done on 12-03-21; multiple bilateral breast cysts, BIRAD 2 repeat in 1 year. Patient does not note any new lumps masses or nodules in either breast. She is not complaining any nipple discharge or skin changes. She is not complaining of any pain in her breast at this time. Caffeine: 4 cups/am; at this time 1/2 decaff nicotine: none ruben-bromine: occasional hormones: estrogen/testosterone cream; progesterone oral pill has been on this for 12 months; she has stopped the estrogen for the past 6 months; she is still taking the progesterone pill Family history: 1. Father: Prostate and skin cancer 2. Great aunt paternal: Breast cancer 3. paternal aunt: breast cancer Hormonal history Menarche: 16 , first child at 34, breast-fed: Yes Menopause: Hysterectomy of 45 for adenomyosis and fibroids, no cancer, ovaries were not removed Patient control pills: 10 years Hormones: Use estrogen about 1 year and progesterone 2-3 years has been off it now for approximately 8 months Past surgical history: 1. fibroids 2. Cervical freezing 3. Hysterectomy Past medical history: 1. Placental abruption 2. Anxiety 3. Fibrocystic breast changes Social history: Smoke: Negative Alcohol: Negative Drugs: Negative Caffeine: Coffee in the morning Review of systems: HEENT: Tinnitus Lungs: Negative Heart: Negative GI: Negative : Status post hysterectomy Musculoskeletal: Negative Skin: Negative Psychiatric: anxiety Objective - Vital Signs Vital signs: Vital Signs Temp 98.7 F 06/07/22 12:58 Pulse 87 06/07/22 12:58 Resp 12 06/07/22 12:58 BP 122/85 06/07/22 12:58 Pulse Ox 99 06/07/22 12:58 FiO2 Intake & Output 06/06/22 06/07/22 06/07/22 18:59 06:59 18:59 Weight 80.739 kg - Exam BMI: 27.1 - Constitutional General appearance: Present: cooperative - EENT Eyes: Present: EOMI ENT: Present: hearing grossly normal - Neck Neck: Present: normal ROM - Respiratory Respiratory: bilateral: CTA - Cardiovascular Heart sounds: normal: S1, S2 - Integumentary Integumentary: Present: normal turgor - Musculoskeletal Musculoskeletal: Present: gait normal - Psychiatric Psychiatric: Present: A&O x's 3, appropriate affect, intact judgment & insight - Additional findings Additional findings: Breast Exam: BRA: 36B inspection: grade 2 ptosis bilateral palpation: right breast: multi positional exam fibrocystic changes no dominant masses or nodules of concern; very dense breast Right axilla: No adenopathy of concern Left breast: Multi-positional exam fibrocystic changes no dominant masses or nodules of concern; very dense breast Left axilla: No adenopathy of concern Assessment and Plan Assessment: Impression: Bilateral fibrocystic breast disease/dense breast Last bilateral mammogram and ultrasound was 3221 which was benign BIRADS 2 Plan: Bilateral mammogram and ultrasound November 2022 with physician exam at that time Patient follow up sooner any questions or concerns I will increase the patient is Dr. Dr. Harry regarding her estrogen and progesterone supplements CC: Dr. Harry
== END ==
LOC: WWCWWP 12:43
PROVIDERS: ATTEND Surgery
DX: N60.11 Diffuse cystic mastopathy of right breast (principal); N60.12 Diffuse cystic mastopathy of left breast; F41.9 Anxiety disorder, unspecified

== ENCOUNTER → 2023-12-22 | Outpatient (CLI) | payer BC ==
--- NOTE | 2023-12-23 12:48 | MM ---
Reason for Exam: Screening (asymptomatic). Last mammogram was performed 1 year(s) and 1 month(s) ago. Patient History: Menarche at age 16. First Full-Term at age 34. Late child-bearing (after 30). Hysterectomy at age 45. Postmenopausal. Estrogen, from age 50 until age 52. Progesterone for 2 years from age 50 until age 52. Hormonal Contraceptives, from age 44 until age 45. 08/06/2017, Benign Cyst Aspiration on the left side. Paternal aunt (Maggie) had breast cancer, age 45. Risk Values: Rose 5 year model risk: 1.3%. NCI Lifetime model risk: 10.8%. Prior Study Comparison: 12/01/2020 Bilateral Diagnostic Mammogram, [facility]. 12/03/2021 Bilateral Diagnostic Mammogram, [facility]. 11/18/2022 Bilateral MG 3D diag mammo w/cad PAULINE, [facility]. Tissue Density: The breasts are extremely dense, which lowers the sensitivity of mammography. Findings: Analyzed By CAD. There is no suspicious group of microcalcifications or new suspicious mass in either breast. Overall Assessment: Negative, BI-RAD 1 Management: Screening Mammogram of both breasts in 1 year. . Patient should continue monthly self-breast exams. A clinical breast exam by your physician is recommended on an annual basis. This exam should not preclude additional follow-up of suspicious palpable abnormalities. Note on Rose scores and lifetime risk: 1. A Rose score greater than 3% is considered moderate risk. If this is the case, consider specialist referral to assess eligibility for a risk reducing agent. 2. If overall lifetime risk for the development of breast cancer is 20% or higher, the patient may qualify for future screening with alternating mammogram and breast MRI. Electronically signed and approved by: Roney Miller M.D. Radiologis
== END | disposition home or self-care (01) ==
LOC: RADMAMWWP 10:51
PROVIDERS: ATTEND Family Medicine
DX: Z12.31 Encounter for screening mammogram for malignant neoplasm of breast (principal); Z80.3 Family history of malignant neoplasm of breast; Z78.0 Asymptomatic menopausal state
CPT/HCPCS: 77063; 77067

== ENCOUNTER → 2025-02-25 | Outpatient (CLI) | payer BC ==
--- NOTE | 2025-02-28 11:30 | MM ---
Reason for Exam: Screening (asymptomatic). Last mammogram was performed 1 year(s) and 2 month(s) ago. Patient History: Menarche at age 16. First Full-Term at age 34. Late child-bearing (after 30). Hysterectomy at age 45. Postmenopausal. Estrogen, from age 50 until age 52. Progesterone for 2 years from age 50 until age 52. Hormonal Contraceptives, from age 44 until age 45. 08/06/2017, Benign Cyst Aspiration on the left side. Paternal aunt (Maggie) had breast cancer, age 45. Risk Values: Rose 5 year model risk: 1.4%. NCI Lifetime model risk: 10.6%. Prior Study Comparison: 12/03/2021 Bilateral Diagnostic Mammogram, [facility]. 11/18/2022 Bilateral MG 3D diag mammo w/cad PAULINE, [facility]. 12/22/2023 Bilateral MG 3D screening mammo w/cad, [facility]. Tissue Density: The breasts are extremely dense, which lowers the sensitivity of mammography. Findings: Analyzed By CAD. No suspicious grouped calcifications. Along the inferior margin of the left breast there is a nodular density with the additional smaller nodule seen in the posterior central and inner margin left breast. Overall Assessment: Incomplete: need additional imaging evaluation, BI-RAD 0 Management: Special View Mammogram of the left breast. . Patient should continue monthly self-breast exams. A clinical breast exam by your physician is recommended on an annual basis. This exam should not preclude additional follow-up of suspicious palpable abnormalities. Note on Rose scores and lifetime risk: 1. A Rose score greater than 3% is considered moderate risk. If this is the case, consider specialist referral to assess eligibility for a risk reducing agent. 2. If overall lifetime risk for the development of breast cancer is 20% or higher, the patient may qualify for future screening with alternating mammogram and breast MRI. [facility], , 02/25/2025 1:57 PM. Electronically signed and approved by: Chris Alvarado M.D. Radiologis
== END | disposition home or self-care (01) ==
LOC: RADMAMWWP 13:40
PROVIDERS: ATTEND Family Medicine
DX: Z12.31 Encounter for screening mammogram for malignant neoplasm of breast (principal); R92.343 Mammographic extreme density, bilateral breasts; Z78.0 Asymptomatic menopausal state; Z80.3 Family history of malignant neoplasm of breast
CPT/HCPCS: 77063; 77067

== ENCOUNTER → 2025-03-02 | Outpatient (CLI) | payer BC ==
--- NOTE | 2025-03-02 13:12 | MM ---
Reason for Exam: Additional evaluation requested from abnormal screening. Last screening mammogram was performed less than 1 month ago. Patient History: Menarche at age 16. First Full-Term at age 34. Late child-bearing (after 30). Hysterectomy at age 45. Postmenopausal. Estrogen, from age 50 until age 52. Progesterone for 2 years from age 50 until age 52. Hormonal Contraceptives, from age 44 until age 45. 08/06/2017, Benign Cyst Aspiration on the left side. Paternal aunt (Maggie) had breast cancer, age 45. Risk Values: Rose 5 year model risk: 1.4%. NCI Lifetime model risk: 10.6%. Prior Study Comparison: 11/18/2022 Bilateral MG 3D diag mammo w/cad PAULINE, [facility]. 12/22/2023 Bilateral MG 3D screening mammo w/cad, [facility]. 02/25/2025 Bilateral MG 3D screening mammo w/cad, [facility]. Tissue Density: Left: The breasts are heterogeneously dense, which may obscure small masses. Findings: Analyzed By CAD. The questioned asymmetries do not clearly persist on additional views favoring superimposition shadow. Precautionary 6 month follow-up can be performed. We do incidentally note some chronic appearing low density circumscribed nodularity measuring up to 5 mm that seems to have been present previously as well suggesting underlying cysts. Overall Assessment: Probably benign, BI-RAD 3 Management: Diagnostic Mammogram of the left breast. Results were given to the patient verbally at the time of exam. Patient should continue monthly self-breast exams. A clinical breast exam by your physician is recommended on an annual basis. This exam should not preclude additional follow-up of suspicious palpable abnormalities. Note on Rose scores and lifetime risk: 1. A Rose score greater than 3% is considered moderate risk. If this is the case, consider specialist referral to assess eligibility for a risk reducing agent. 2. If overall lifetime risk for the development of breast cancer is 20% or higher, the patient may qualify for future screening with alternating mammogram and breast MRI. [facility], , 03/02/2025 1:07 PM. Electronically signed and approved by: Nikole Dobson M.D. Radiologist
== END | disposition home or self-care (01) ==
LOC: RADMAMWWP 12:45
PROVIDERS: ATTEND Family Medicine
DX: R92.8 Other abnormal and inconclusive findings on diagnostic imaging of breast (principal); R92.332 Mammographic heterogeneous density, left breast; Z78.0 Asymptomatic menopausal state; Z92.0 Personal history of contraception; Z80.3 Family history of malignant neoplasm of breast
CPT/HCPCS: 77061; 77065